=== PATIENT | female | born 1990 | race African-American/Black ===

== ENCOUNTER 2022-02-14 18:20 | Emergency (ER) | payer SELFPAY ==
[2022-02-14 19:15] VITALS: BP 116/70; PULSE 60; TEMP 95.5; BMI 32.8
== END 2022-02-14 20:16 | disposition home or self-care (01) ==
LOC: JER 18:20
DX: F10.920 Alcohol use, unspecified with intoxication, uncomplicated (principal); R11.2 Nausea with vomiting, unspecified
CPT/HCPCS: 99282-25